=== PATIENT | male | born 1960 | race Caucasian/White ===

== ENCOUNTER 2016-11-12 19:00 | Inpatient (IN) | payer MEDICAID ==
[~2016-11-12] VITALS: Ht 172.7 cm; Wt 74.5 kg
[2016-11-12 19:58] LABS: BASOPHILS 0.3 % (0-2); EOSINOPHILS 1.4 % (0-7); HEMATOCRIT 47.8 % (42.0-54.0); IMMATURE GRANULOCYTES 0.3 % (0-5); LYMPHOCYTES 20.8 % (15-50); MCH 29.3 pg (26.0-34.0); MCHC 33.5 g/dL (31.0-37.0); MCV 87.5 fL (80.0-100.0); MONOCYTES 7.1 % (2-11); NEUTROPHILS 70.1 % (40-80); PLATELET COUNT 219 10x3/uL (130-400); RBC 5.46 10x6/uL (4.20-6.10); RDW 12.2 % (11.5-14.5)
[2016-11-12 20:15] LABS: ALBUMIN 3.9 g/dL (3.4-5.0); ANION GAP 12.2 mmol/L (8-16); BILIRUBIN - TOTAL 0.4 mg/dL (0.2-1.3); CALCIUM 9.4 mg/dL (8.5-10.1); CARBON DIOXIDE 29.6 mmol/L (21.0-32.0); CREATININE - SERUM 1.3 mg/dL (0.6-1.3); POTASSIUM - SERUM 3.8 mmol/L (3.5-5.1); PROTEIN - SERUM 7.2 g/dL (6.4-8.2)
[2016-11-12 23:10] VITALS: BP 124/84
--- NOTE | 2016-11-12 23:15 | NUR ---
PT RECIEVED. NUCLEAR MED AT BEDSIDE. WILL CONTINUE TO MONITOR
[2016-11-12] MEDS ORDERED: ELIQUIS5 MG PO (23:49)
[2016-11-12] MEDS ORDERED: BAYER CHEWABLE81 MG PO (23:50)
[2016-11-12] MEDS ORDERED: CARDIZEM30 MG PO (23:50)
[2016-11-12] MEDS ORDERED: ELAVIL25 MG PO (23:51)
[2016-11-12] MEDS ORDERED: LIPITOR20 MG PO (23:52)
[2016-11-12] MEDS ORDERED: ISOSORBIDE DINI30 MG PO (23:52)
[2016-11-12] MEDS ORDERED: NIASPAN500 MG PO (23:53)
[2016-11-13] VITALS (20 sets, daily range): BP systolic 103–134; BP diastolic 74–92; Ht 172.7 cm; Wt 74.5 kg
--- NOTE | 2016-11-13 00:50 | NUR ---
PT BACK IN ROOM. VSS AT BEDSIDE. GIVEN UPDATE. WILL CONTINUE TO MONITOR
[2016-11-13 01:40] LABS: APTT 31.9 SECONDS (22.8-39.4); INR 1.06 (0.85-1.17); PROTIME 13.7 SECONDS (11.6-15.0)
--- NOTE | 2016-11-13 01:40 | NUR ---
DR LYONS PAGED GIVEN UPDATE FROM CT, READ BACK RESULTS NO NEW ORDERS AT THIS TIME. WILL CONTINUE TO MONITOR
--- NOTE | 2016-11-13 03:00 | NUR ---
BLOOD BANK CALLED [facility] AND PLATELETS READY. WILL INFUSE PER ORDER. VSS. WILL CONTINUE TO MONITOR
[2016-11-13 06:55] LABS: BASOPHILS 0.1 % (0-2); EOSINOPHILS 1.7 % (0-7); HEMOGLOBIN 14.7 g/dL (13.5-17.5); IMMATURE GRANULOCYTES 0.1 % (0-5); LYMPHOCYTES 17.8 % (15-50); MCH 29.1 pg (26.0-34.0); MCHC 33.4 g/dL (31.0-37.0); MEAN PLATELET VOLUME 10.2 fL (7.4-10.4); MONOCYTES 9.6 % (2-11); NEUTROPHILS 70.7 % (40-80); PLATELET COUNT 187 10x3/uL (130-400); RBC 5.06 10x6/uL (4.20-6.10); RDW 12.3 % (11.5-14.5); WBC 7.6 10x3/uL (4.8-10.8)
[2016-11-13 07:31] LABS: ANION GAP 12.9 mmol/L (8-16); CALCIUM 8.9 mg/dL (8.5-10.1); CARBON DIOXIDE 28.1 mmol/L (21.0-32.0); CREATININE - SERUM 1.1 mg/dL (0.6-1.3)
--- NOTE | 2016-11-13 19:20 | NUR ---
ASSESSMENT COMPLETE, PT IS ALERT AND ORIENTED, ON RA WITH 98% O2 SAT. LUNGS CLEAR IN ALL LOBES, S1S2, CM-NSR, PATENT RIGHT FA PIV..SEE IV FLOW SHEET...ABODMEN IS SOFT AND ROUND WITH ACTIVE BS, URINAL AT BEDSIDE, ALL PPP, VSS, CALL LIGHT IN REACH
--- NOTE | 2016-11-13 20:15 | NUR ---
RECIEVED PT TO FLOOR FROM ICU VIA WHEELCHAIR. PT TRANSFERED SELF TO BED. ALERT AND ORIENTED AND ABLE TO VERBALIZE NEEDS. IV IS PATENT AND FLUIDS CONNECTED TO PUMP PER ORDER. PT STATES PAIN IS 4/10. PT IS ORIENTED TO ROOM AND USE OF CALL LIGHT. NO NEEDS ARE VERBALIZED AT THIS TIME. WILL CONTINUE TO MONITOR. SIDE RAILS ARE UP X 2. BED IS IN LOWEST POSITION. CALL LIGHT IS WITHIN REACH.
--- NOTE | 2016-11-13 22:00 | NUR ---
SHIFT ASSESSMENT COMPLETED. NIGHT MEDS GIVEN WITH NO PROBLEMS. NO NEEDS ARE VOICED. WILL MONITOR. SIDE RAILS X 2. BED LOW. CALL LIGHT IN REACH.
[2016-11-14] VITALS: BP 114/69
[2016-11-14 04:54] LABS: BASOPHILS 0.3 % (0-2); EOSINOPHILS 3.7 % (0-7); HEMATOCRIT 42.2 % (42.0-54.0); HEMOGLOBIN 14.1 g/dL (13.5-17.5); IMMATURE GRANULOCYTES 0.3 % (0-5); LYMPHOCYTES 28.3 % (15-50); MCHC 33.4 g/dL (31.0-37.0); MCV 86.7 fL (80.0-100.0); MEAN PLATELET VOLUME 10.1 fL (7.4-10.4); MONOCYTES 11.8 % (2-11); NEUTROPHILS 55.6 % (40-80); PLATELET COUNT 169 10x3/uL (130-400); RBC 4.87 10x6/uL (4.20-6.10); RDW 12.1 % (11.5-14.5)
[2016-11-14 05:07] LABS: ANION GAP 11.7 mmol/L (8-16); CALCIUM 8.9 mg/dL (8.5-10.1); CARBON DIOXIDE 28.4 mmol/L (21.0-32.0); CREATININE - SERUM 1.1 mg/dL (0.6-1.3); POTASSIUM - SERUM 4.1 mmol/L (3.5-5.1)
[2016-11-14 07:30] VITALS: BP 104/76
--- NOTE | 2016-11-14 07:45 | NUR ---
PT AOX4 RESP EVEN AND NONLABORED PT DENIES NEEDS AT THIS TIME IV TO LEFT WRIST PATENT AND INTACT AT THIS TIME SRX2 BED AT LOWEST SETTING CALL LIGHT WITHIN REACH WILL CONTINUE TO MONITOR
[2016-11-14 08:06] VITALS: BP 113/70
[2016-11-14 11:58] VITALS: BP 104/66
[2016-11-14 15:03] VITALS: BP 121/75
--- NOTE | 2016-11-14 18:50 | NUR ---
PT TAKEN VIA WHEELCHAIR TO PRIVATE VEHICLE AT THIS TIME
== END 2016-11-14 19:55 | disposition home or self-care (01) | DRG 921 ==
LOC: OBSVTIME → D.ER 19:00 → OBSVTIME 22:44 → D.MS 22:44 → D.ICU 22:44 → D.ER 22:44 → D.ICU 22:44 → D.ER 11-13 19:20 → D.ICU 11-13 19:20 → D.MS 11-13 20:12 → D.ICU 11-13 20:12 → D.MS 11-14 19:55
PROVIDERS: Emergency Medicine; Internal Medicine Gastroenterology; Nurse Practitioner Acute Care; ADMIT Family Medicine
DX: K91.840 Postprocedural hemorrhage of a digestive system organ or structure following a digestive system procedure (principal); Y83.8 Other surgical procedures as the cause of abnormal reaction of the patient, or of later complication, without mention of misadventure at the time of the procedure; I48.91 Unspecified atrial fibrillation